=== PATIENT | female | born 1965 | race Caucasian/White ===

== ENCOUNTER → 2017-09-26 | Day surgery (SDC) | payer OTHER ==
[~2017-09-26] MED LIST: AVELOX ABC PAC400 MG PO; BENADRYL50 MG PO; CATALAN PO; SYNTHROID112 MCG PO
== END | disposition home or self-care (01) ==
LOC: ADM 09-23 08:00 → CIR.AMB 04:45
DX: D06.1 Carcinoma in situ of exocervix (principal)

== ENCOUNTER 2017-12-27 15:11 | Inpatient (IN) | payer OTHER ==
[~2017-12-27] VITALS: Ht 154.9 cm; Wt 74.8 kg
[2017-12-31] MEDS ORDERED: METFORMIN HCL850 MG PO (10:18)
[2017-12-31] MEDS ORDERED: VASOTEC PO (10:19)
[2017-12-31] MEDS ORDERED: FENOFIBRATE160 MG PO (10:19)
== END 2018-01-03 11:09 | DRG 735 ==
LOC: EDSTATUS 12-31 15:00 → ADM 12-31 15:00 → O/R 01-02 05:35 → OB/GYN 01-02 08:00
PROVIDERS: Obstetrics & Gynecology Gynecologic Oncology
PROC: 0UT24ZZ Resection of Bilateral Ovaries, Percutaneous Endoscopic Approach (ICD-10-PCS; 2018-01-02)
PROC: 0UT74ZZ Resection of Bilateral Fallopian Tubes, Percutaneous Endoscopic Approach (ICD-10-PCS; 2018-01-02)
PROC: 07TC4ZZ Resection of Pelvis Lymphatic, Percutaneous Endoscopic Approach (ICD-10-PCS; principal; 2018-01-02 08:00)
PROC: 0UT94ZZ Resection of Uterus, Percutaneous Endoscopic Approach (ICD-10-PCS; 2018-01-02 08:00)
DX: D06.0 Carcinoma in situ of endocervix (principal); N80.0 Endometriosis of uterus; D28.2 Benign neoplasm of uterine tubes and ligaments

== ENCOUNTER 2017-12-31 08:31 | Outpatient (CLI) | payer OTHER ==
[2017-12-31] MEDS ORDERED: METFORMIN HCL850 MG PO (10:18)
[2017-12-31] MEDS ORDERED: VASOTEC PO (10:19)
[2017-12-31] MEDS ORDERED: FENOFIBRATE160 MG PO (10:19)
== END 2017-12-31 08:40 | disposition home or self-care (01) ==
LOC: RAD 501 08:31
DX: C53.0 Malignant neoplasm of endocervix (principal); D06.7 Carcinoma in situ of other parts of cervix; Z01.818 Encounter for other preprocedural examination